=== PATIENT | male | born 1940 | race Hispanic/Latino ===

== ENCOUNTER → 2024-05-08 | Outpatient (CLI) | payer MEDICARE ==
[~2024-05-08] MED LIST: AEC81 PO; CEFU500T67 PO; CETI10TA57 PO; CLOP-31 PO; LISI10TA24 PO; ROSU40TA70 PO
== END | disposition home or self-care (01) ==
LOC: RAH 08:25
PROVIDERS: ATTEND Internal Medicine
DX: R13.10 Dysphagia, unspecified (principal); R63.4 Abnormal weight loss
CPT/HCPCS: 74240

== ENCOUNTER 2024-11-07 10:42 | Emergency (ER) | payer MEDICARE ==
[~2024-11-07 10:42] MED LIST changes: -AEC81 PO; +ASPI-1197 PO; -CEFU500T67 PO; -CETI10TA57 PO; -CLOP-31 PO; +CYAN-106 PO; -LISI10TA24 PO; +LISI2.5T13 PO; +MULT-1367 PO; +ROSU10TA72 PO; -ROSU40TA70 PO
[2024-11-07 11:15] LABS: APPEARANCE,URINE CLEAR (CLEAR); BILIRUBIN,URINE NEGATIVE (NEGATIVE); COLOR,URINE LIGHT-YELLOW (YELLOW); GLUCOSE, URINE (UA) NEGATIVE (NEGATIVE); KETONES,URINE NEGATIVE (NEGATIVE); LEUKOCYTE ESTERASE ,URINE NEGATIVE Leu/uL (NEGATIVE); NITRATE,URINE NEGATIVE (NEGATIVE); OCCULT BLOOD,URINE NEGATIVE (NEGATIVE); PH,URINE 5.5 (5.0-8.0); PROTEIN,URINE NEGATIVE (NEGATIVE); UROBILINOGEN,URINE 0.2 mg/dL (0.2-1.0)
[2024-11-07 11:17] LABS: ADD UA MICROSCOPIC YES
[2024-11-07 11:18] LABS: BACTERIA,URINE RARE /HPF (None Seen); MUCUS,URINE RARE LPF (None Seen); RBC,URINE 0-1 /HPF (0-1); WBC,URINE 0-1 /HPF (0-1)
--- NOTE | 2024-11-07 11:30 | ERN ---
ED Note History of Present Illness Stated Complaint: URINARY RETENTION Chief Complaint: Urinary Retention Time Seen by MD: 10:50 Dictation: This is a case of 84-year-old male with a past medical history of CAD s/p cardiac stent, diabetes mellitus type 2, high cholesterol, heart disease, hypertension, stroke with left-sided deficit, who was brought to the ER with the complaints of urinary retention since morning. He also complains of mild pelvic pain and discomfort. Denies fever, chills, headache, dizziness, nausea, vomiting , chest pain, palpitations, abdominal pain, diarrhea. The patient's family mentioned about several similar episodes in the past. Allergies: Coded Allergies: No Known Allergies (Verified Allergy, Unknown, 12/24/16) Home Meds Active Scripts Rosuvastatin Calcium (Rosuvastatin Calcium) 10 Mg Tablet, 10 MG PO HS, #90 TAB 3 Refills Prov:STARR METZ MD 05/30/24 Lisinopril (Lisinopril) 2.5 Mg Tablet, 2.5 MG PO DAILY, #90 TAB 3 Refills Prov:STARR METZ MD 05/30/24 Reported Medications Aspirin (Aspirin) 81 Mg Tab.chew, 81 MG PO AM, TAB.CHEW 05/30/24 Cyanocobalamin (Vitamin B-12) (Vitamin B12) 1,000 Mcg Tablet, 1000 MCG PO DAILY, TAB 05/27/24 Multivitamin (Multivitamin) 1 Each Tablet, 1 EACH PO DAILY, TAB 05/27/24 Past Medical History Past Medical History: CAD, Diabetes-Type II, High Cholesterol, Heart Disease, Hypertension, Stroke Additional Past Medical Hx: LEFT SIDE DEFICITS Surgical History: Other Surgical History Other: CARDIAC STENT Social History: Negative, Lives with family Review of System Dictation Constitutional: No appetite loss, No fevers, chills , No night sweats, No weakness, fatigue Neck: No swelling. pain or stiffness Respiratory: Productive cough, no shortness of breath, wheezing Cardiovascular: No chest pain,, palpitations, dyspnea, No edema Gastrointestinal: No abdominal pain, No nausea, vomiting, No diarrhea, constipation Genitourinary: Urinary retention, No blood in urine Musculoskeletal: No joint pain, muscle pain, swelling or stiffness, Neurological: Left-sided deficit due to prior stroke, No numbness, tingling, No weakness, tremors or seizures Initial Vital Sign VS Vital Signs Date Time Temp Pulse Resp B/P (MAP) Pulse Ox O2 Delivery O2 Flow Rate FiO2 11/07/24 10:45 98.2 62 18 151/69 100 Room Air 0 11/07/24 10:48 21 Physical Exam Dictation Physical Exam Dictation VITAL SIGNS: Reviewed. GENERAL APPEARANCE: Alert, oriented x3, no acute distress HEAD AND FACE: Non-traumatic. EYES: PERRL, pink conjunctivas, eyelid no trauma, anterior chamber clear. NOSE: No discharge, no bleeding. OROPHARYNX: Mouth normal, teeth no caries, tongue pink. Pharynx clear, no erythema. Tonsils no exudates, no abscesses noted. Mucous membrane moist. NECK: Supple, non-tender, no thyromegaly, no masses, no JVD, no bruits. BREAST: Deferred. CHEST: No tenderness, no crepitus, no paradoxical movement, no retractions. LUNGS: Clear, well-ventilated, symmetric, no rales, no wheezing, no rhonchi, no stridor, good breath sounds bilaterally. HEART: Regular rate, regular rhythm, no murmur, no gallops. VASCULAR: No peripheral edema. ABDOMEN: Soft, positive bowel sounds, nondistended, no guarding, nontender, no rebound, no masses no hepatomegaly, no splenomegaly, no Boswell's sign, no hernias. RECTAL: Deferred. GENITAL: Examination done after [place]'s catheter placement, mild pelvic tenderness NEUROLOGICAL: Normal speech, left-sided arm weakness due to prior stroke gross sensory function intact. MUSCULOSKELETAL: Neck nontender, full range of motion, back nontender, full range of motion. EXTREMITIES: Nontender SKIN: Color pink, dry, no turgor, no rash, no lacerations, no abrasions, no co ntusions. LYMPHATICS: Deferred. Results (Laboratory/Radiology) Laboratory/Radiology Laboratory Tests Test 11/07/24 11:03 11/07/24 11:35 11/07/24 11:37 Urine Color LIGHT-YELLOW (YELLOW) Urine Appearance CLEAR (CLEAR) Urine pH 5.5 (5.0-8.0) Urine Specific [place] 1.008 (1.001-1.031) Urine Protein NEGATIVE mg/dL (NEGATIVE) Urine Glucose (UA) NEGATIVE mg/dL (NEGATIVE) Urine Ketones NEGATIVE mg/dL (NEGATIVE) Urine Occult Blood NEGATIVE (NEGATIVE) Urine Nitrate NEGATIVE (NEGATIVE) Urine Bilirubin NEGATIVE mg/dL (NEGATIVE) Urine Urobilinogen 0.2 mg/dL (0.2-1.0) Urine Leukocyte Esterase NEGATIVE Radha/uL Urine RBC 0-1 /HPF (0-1) Urine WBC 0-1 /HPF (0-1) Urine Bacteria RARE /HPF (None Seen) Influenza Type A Antigen Negative For Type A Influenza Type B Antigen Negative For Type B SARS-CoV-2 Antigen (Rapid) PRESUMPTIVE NEGATIVE White Blood Count 6.0 K/uL (4.8-10.8) Red Blood Count 3.86 MIL/uL (4.50-6.20) L Hemoglobin 12.5 g/dL (14.0-18.0) L Hematocrit 37.5 % (42-54) L Mean Corpuscular Volume 97.2 fL (79-99) Mean Corpuscular Hemoglobin 32.4 pg (27.0-33.0) Mean Corpuscular Hemoglobin Concent 33.3 g/dL (32.0-36.0) Red Cell Distribution Width 12.2 % (11.0-15.5) Platelet Count 172 K/uL (130-400) Mean Platelet Volume 10.0 fL (7.5-10.5) Immature Granulocyte % (Auto) 0.2 % (0-1) Neutrophils (%) (Auto) 87.9 % (40.0-77.0) H Lymphocytes (%) (Auto) 7.2 % (21.0-51.0) L Monocytes (%) (Auto) 4.3 % (3.0-13.0) Eosinophils (%) (Auto) 0.2 % (0.0-8.0) Basophils (%) (Auto) 0.2 % (0.0-5.0) Neutrophils # (Auto) 5.3 K/uL (1.8-7.7) Lymphocytes # (Auto) 0.4 K/uL (1.0-4.8) L Monocytes # (Auto) 0.3 K/uL (0.1-1.0) Eosinophils # (Auto) 0.01 K/uL (0.00-0.70) Basophils # (Auto) 0.01 K/uL (0.00-0.20) Absolute Immature Granulocyte (auto 0.01 K/uL (0-1) Nucleated Red Blood Cells 0.0 % (0.0-0.19) White Cell Morphology Comment See comments Sodium Level 138 mmol/L (136-145) Potassium Level 4.4 mmol/L (3.5-5.1) Chloride Level 107 mmol/L (101-111) Carbon Dioxide Level 26 mmol/L (21-32) Blood Urea Nitrogen 22 mg/dL (7-18) H Creatinine 1.5 mg/dL (0.5-1.3) H Glomerular Filtration Rate Calc 46 mL/min (>90) Random Glucose 99 mg/dL (70-105) Lactic Acid Level 1.3 mmol/L (0.8-2.5) Total Calcium 10.4 mg/dL (8.5-10.1) H ED Course ED Course Orders Procedure Category Date Status Time Cbc With Differential LAB 11/07/24 Complete 11:03 Basic Metabolic Panel LAB 11/07/24 Complete 11:03 Urinalysis Profile LAB 11/07/24 Complete 11:03 Lactic Acid LAB 11/07/24 Complete 11:03 Influenza Type A & B, LAB 11/07/24 Complete Rapid 11:24 Covid19 (Sars Antigen LAB 11/07/24 Complete Rapid) 11:24 Guaifenesin Sug-Kavon PHA 11/07/24 Complete 100 Mg/5ml (Robituss 11:30 Current Medications Medications (Trade) Dose Ordered Sig/Diego Route PRN Reason Start Time Stop Time Status Last Admin Dose Admin Guaifenesin (RobiTUSSin SUGAR-FREE 100 MG/ 5 ML UDCUP) 100 mg ONCE ONCE PO 11/07/24 11:30 11/07/24 11:31 DC 11/07/24 11:34 Vital Signs Date Time Temp Pulse Resp B/P (MAP) Pulse Ox O2 Delivery O2 Flow Rate FiO2 11/07/24 11:17 97.9 70 18 157/60 99 Room Air* 0 21 11/07/24 10:48 98.2 62 18 151/69 100 Room Air* 0 21 11/07/24 10:45 98.2 62 18 151/69 100 Room Air 0 Medical Decision Making MDM MDM Potential differential diagnoses include: ACUTE URINARY RETENTION Assessment: We will order CBC to rule any anemia, infections and to evaluate the overall health of the patient. CMP was ordered in order to assess various electrolytes, kidney function, liver function ,protein levels and blood glucose levels, I will re-evaluate the patient after treatment and diagnostic exams have returned to determine whether they require further testing, can be safely discharged home, or need admission for further treatment and evaluation. Given the social determinants of health affecting care, including literacy, access to medical care, prescription drug management, and pxio-snn-frvzyhy drugs, I will ensure that treatment plans are tailored accordingly. Revaluation : PATIENT IS ALERT AWAKE AND ORIENTED. HEMODYNAMICALLY STABLE. LABS HEMOGLOBIN 12.5, BUN 22, CREATININE 1.5 SECONDARY TO CHRONIC KIDNEY DISEASE, URINALYSIS UNREMARKABLE. INFLUENZA A AND B, COVID TEST RESULTS CAME BACK NEGATIVE Disposition: PATIENT IS BEING DISCHARGED HOME ADVISED TO FOLLOW UP WITH PCP WITHIN 2-3 DAYS STABLE HYDRATED BY DRINKING PLENTY OF FLUIDS MONITOR FOR ANY NEW OR RECURRING SYMPTOMS, PAIN OR DISCOMFORT OR URGENCY, FEVER, CHILLS, DIFFICULTY URINATING, FOUL-SMELLING URINE AND SEEK IMMEDIATE MEDICAL ATTENTION PROMPTLY FOLLOW FIBER RICH DIET DX & DISP Disposition: Discharge Departure Impression: Primary Impression: Urinary retention Critical Time: 30 minutes Condition: Stable Referrals: ELISHA ANDERSON MD (PCP) ATTESTATION BY PHYSICIAN I reviewed the documentation, medical decision making, and treatment plan in real-time as noted by the resident above. I agree with the findings and plan of care. CHANDU TIDWELL MD, MD Nov 07, 2024 11:30 WOLF MOLINA MD Nov 07, 2024 12:54
[2024-11-07] MEDS: guaiFENesin SUGAR-FREE 100 MG/5 ML UDCUP PO ONE (11:34)
[2024-11-07 11:43] LABS: BASOPHILS # (AUTO) 0.01 K/uL (0.00-0.20); BASOPHILS % (AUTO) 0.2 % (0.0-5.0); EOSINOPHILS # (AUTO) 0.01 K/uL (0.00-0.70); EOSINOPHILS % (AUTO) 0.2 % (0.0-8.0); HEMATOCRIT 37.5 % (42-54); IMMATURE GRANULOCYTE ABSOLUTE 0.01 K/uL (0-1); LYMPHOCYTES # (AUTO) 0.4 K/uL (1.0-4.8); LYMPHOCYTES % (AUTO) 7.2 % (21.0-51.0); MEAN CORPUSCULAR HEMOGLOBIN 32.4 pg (27.0-33.0); MEAN CORPUSCULAR HGB CONC 33.3 g/dL (32.0-36.0); MEAN CORPUSCULAR VOLUME 97.2 fL (79-99); MONOCYTES # (AUTO) 0.3 K/uL (0.1-1.0); MONOCYTES % (AUTO) 4.3 % (3.0-13.0); NEUTROPHILS # (AUTO) 5.3 K/uL (1.8-7.7); NEUTROPHILS % (AUTO) 87.9 % (40.0-77.0); PLATELET COUNT (AUTO) 172 K/uL (130-400); RED BLOOD CELL COUNT(AUTO) 3.86 MIL/uL (4.50-6.20); RED CELL DISTRIBUTION WIDTH 12.2 % (11.0-15.5)
[2024-11-07 11:59] LABS: COVID19 (SARS ANTIGEN RAPID) PRESUMPTIVE NEGATIVE (NEGATIVE); INFLUENZA TYPE A Negative For Type A (NEGATIVE); INFLUENZA TYPE B Negative For Type B (NEGATIVE)
[2024-11-07 12:01] LABS: CREATININE 1.5 mg/dL (0.5-1.3); POTASSIUM 4.4 mmol/L (3.5-5.1)
[2024-11-07 12:54] VITALS: BP 148/63; PULSE 74; RESP 20; TEMP 97; O2SAT 97
== END 2024-11-07 13:10 | disposition home or self-care (01) ==
LOC: EDH 10:42
DX: R33.9 Retention of urine, unspecified (principal); E11.9 Type 2 diabetes mellitus without complications; E78.00 Pure hypercholesterolemia, unspecified; I10 Essential (primary) hypertension; I25.10 Atherosclerotic heart disease of native coronary artery without angina pectoris; Z79.899 Other long term (current) drug therapy; Z86.73 Personal history of transient ischemic attack (TIA), and cerebral infarction without residual deficits; Z95.5 Presence of coronary angioplasty implant and graft; Z20.822 Contact with and (suspected) exposure to COVID-19
CPT/HCPCS: 36415; 51702; 80048; 81001; 83605; 85025; 87426; 87804; 99284

== ENCOUNTER 2024-11-13 09:17 | Emergency (ER) | payer MEDICARE ==
[~2024-11-13] VITALS: Ht 154.9 cm; Wt 65.8 kg
[2024-11-13 09:18] VITALS: BP 130/60; PULSE 62; RESP 16; TEMP 98.5
--- NOTE | 2024-11-13 10:24 | ERN ---
ED Note History of Present Illness Stated Complaint: CLARK LEAKING Chief Complaint: Urinary Catheter Problems Time Seen by MD: 09:19 Dictation: 84-year-old male presents to the ED via EMS for evaluation of Clark problems onset last night. Family reports Clark was leaking and that patient was covered in urine this morning. As per patient Clark was placed on mid October. Allergies: Coded Allergies: No Known Allergies (Verified Allergy, Unknown, 12/24/16) Home Meds Active Scripts Rosuvastatin Calcium (Rosuvastatin Calcium) 10 Mg Tablet, 10 MG PO HS, #90 TAB 3 Refills Prov:STARR METZ MD 05/30/24 Lisinopril (Lisinopril) 2.5 Mg Tablet, 2.5 MG PO DAILY, #90 TAB 3 Refills Prov:STARR METZ MD 05/30/24 Reported Medications Aspirin (Aspirin) 81 Mg Tab.chew, 81 MG PO AM, TAB.CHEW 05/30/24 Cyanocobalamin (Vitamin B-12) (Vitamin B12) 1,000 Mcg Tablet, 1000 MCG PO DAILY, TAB 05/27/24 Multivitamin (Multivitamin) 1 Each Tablet, 1 EACH PO DAILY, TAB 05/27/24 Past Medical History Past Medical History: CVA, Hypertension, Other Additional Past Medical Hx: BPH Surgical History: CABG Surgical History Other: CARDIAC STENT Social History: Negative, Lives with family Review of System Dictation Constitutional: Negative for fever,chills, and weight loss Eyes: Negative for injury, pain,redness, and discharge ENT: Negative for injury,pain or swelling Cardiovascular: Negative for chest pain, palpitations, and edema Respiratory: Negative for shortness of breath, cough, and wheezing, Abdomen/GI: Negative for abdominal pain, nausea, vomiting, diarrhea, and constipation Back: Negative for injury and pain : Clark evaluation Negative for injury, bleeding and discharge MS/Extremity: Negative for injury and deformity Skin: Negative for rash, and discoloration Neuro: Negative for headache, weakness, numbness, tingling, and seizure Psych: Negative for suicide ideation, homicidal ideation, and hallucinations Initial Vital Sign VS Vital Signs Date Time Temp Pulse Resp B/P (MAP) Pulse Ox O2 Delivery O2 Flow Rate FiO2 11/13/24 09:18 98.4 62 16 130/60 98 Room Air 0 Physical Exam Dictation General: awake, alert, NAD Head/Face: Normocephalic, atraumatic Eyes: PERRL, EOMI, vision at baseline ENT: oral cavity clear, TMs clear, no signs of infection Neck: Trachea midline, supple, no nuchal rigidity Cardiovascular: RRR, normal S1/S2, No MRGs, no JVD Respiratory: CTAB, no respiratory distress, No rales or wheezes Abdomen: Soft, non-tender, non-distended, normal bowel sounds, no guarding or rebound. : Clark in place Skin: Warm, dry, normal turgor, no rash MS/Extremity: Pulses equal, no cyanosis, neurovascular intact, FROM Neuro: COAx4, GCS 15, strength 5/5, CN 2-12 intact, normal cerebellar exam, normal gait, Psych: Normal behavior, mood, and affect normal ED Course ED Course Vital Signs Date Time Temp Pulse Resp B/P (MAP) Pulse Ox O2 Delivery O2 Flow Rate FiO2 11/13/24 09:18 98.4 62 16 130/60 98 Room Air 0 Medical Decision Making MDM MDM: Differential diagnosis: Malfunctioning Clark catheter, Clark replacement Previous outside records reviewed: Old ER visits. Need for hospitalization: Patient does not meet criteria for hospitalization. Need for emergency major/minor surgery: No Patient's prior external medical records from other ER visits were reviewed by me as indicated. Prior testing and results from previous visits were reviewed. Prior tests were taken into account with medical decision making and resource utilization, independent historian/historians were used to obtain complete medical history. I independently interpreted the test that were performed, results were reviewed by me and considered findings on radiology if ordered. Medical management and examination interpretation discussions were had by me with other qualified healthcare professionals as indicated for the patient's care. DX & DISP Disposition: Discharge Departure Impression: Primary Impression: Malfunction of Clark catheter Condition: Stable Referrals: ELISHA ANDERSON MD (PCP) SAIDA SRINIVASAN MD Nov 13, 2024 10:24
--- NOTE | 2024-11-13 10:30 | NUR ---
CLARK ASSESSED, CAP MISSING ON CLARK; NO OTHERS SIGNS OF LEAKAGE NOTED. PATIENT EDUCATION PROVIDED. PATIENT OPTED FOR CLARK BAG INSTEAD OF LEG BAG. ADDITIONAL EDUCATION PROVIDED ON CLARK CARE. PATIENT VERBALIZES UNDERSTANDING.
== END 2024-11-13 10:50 | disposition home or self-care (01) ==
LOC: EDH 09:17
DX: T83.091A Other mechanical complication of indwelling urethral catheter, initial encounter (principal); I10 Essential (primary) hypertension; Z79.899 Other long term (current) drug therapy; Z86.73 Personal history of transient ischemic attack (TIA), and cerebral infarction without residual deficits; Z95.1 Presence of aortocoronary bypass graft; Z95.5 Presence of coronary angioplasty implant and graft; Y82.9 Unspecified medical devices associated with adverse incidents; Y92.89 Other specified places as the place of occurrence of the external cause
CPT/HCPCS: 99283